=== PATIENT | male | born 1965 | race Caucasian/White ===

== ENCOUNTER 2019-01-29 11:41 | Inpatient (IN) | payer MEDICAID ==
[~2019-01-29] VITALS: Ht 162.6 cm; Wt 81.6 kg
[~2019-01-29 11:41] MED LIST: BENZ1TAB7 PO; LORA-250 PO; LURA120T PO; PROP80CA2 PO; TRAZ150T78 PO
[2019-01-29 16:18] LABS: EOSINOPHILS % 2.6 % (0.0-5.0); LYMPHOCYTES % 8.7 % (20.0-50.0); MEAN CORPUSCULAR HEMOGLOBIN 26.9 pg (28.0-32.0); MEAN CORPUSCULAR VOLUME 82.8 fL (80.0-94.0); MEAN PLATELET VOLUME 8.8 fl (7.4-10.4); MONOCYTES % 8.3 % (2.0-8.0); NEUTROPHILS % 79.4 % (40.0-76.0); PLATELET 500 x1000/uL (130-400); RED BLOOD CELL COUNT 2.32 mill/uL (4.7-6.1); RED CELL DISTRIBUTION WIDTH 16.7 % (11.6-14.6)
[2019-01-29 16:22] LABS: CHLORIDE 105 mEq/L (98-107); HEMATOCRIT. 19.2 % (42.0-52.0); HEMOGLOBIN. 6.3 g/dL (14.0-18.0)
[2019-01-29] MEDS ORDERED: CLONIDINE 0.2MG TABLET PO ONE (17:00)
[2019-01-29] MEDS ORDERED: DOCUSATE SODIUM 100MG CAPSULE PO PRN (21:00)
[2019-01-29] MEDS ORDERED: IPRATROPIUM/ALBUTEROL 0.5-3(2.5)MG/3ML NEB NEB PRN (21:00)
[2019-01-29] MEDS ORDERED: ONDANSETRON HCL 4MG/2ML INJ IV PRN (21:00)
[2019-01-29] MEDS ORDERED: MAGNESIUM/ALUMINUM HYDROXIDE/SIMETHICONE 30ML UDC PO PRN (21:00)
[2019-01-29 21:42] LABS: CLARITY URINE CLEAR (CLEAR); COLOR URINE YELLOW (YELLOW); KETONES URINE NEGATIVE (NEGATIVE); LEUKOCYTE ESTERASE URINE NEGATIVE (NEGATIVE); NITRITE URINE NEGATIVE (NEGATIVE); OCCULT BLOOD URINE 1+ (NEGATIVE); PROTEIN URINE 4+ (NEGATIVE); SPECIFIC GRAVITY URINE 1.015 (1.005-1.030); UROBILINOGEN URINE 0.2 E.U./dL (0.2-1.0)
[2019-01-29 22:00] LABS: HEPATITIS B SURFACE ANTIGEN NEGATIVE
[2019-01-29 22:04] LABS: CREATINE KINASE 457 IU/L (39-308)
[2019-01-29 22:05] LABS: CREATINE KINASE MB FRACTION 2.6 ng/mL (0.5-3.6)
[2019-01-29 22:08] LABS: *AMPHETAMINES SCREEN URINE NEGATIVE (NEGATIVE); *BARBITURATES SCREEN URINE NEGATIVE (NEGATIVE); *BENZODIAZEPINES SCREEN URINE NEGATIVE (NEGATIVE)
[2019-01-29 22:09] LABS: *COCAINE SCREEN URINE NEGATIVE (NEGATIVE); CANNABINOID URINE SCREEN NEGATIVE (NEGATIVE); METHADONE URINE SCREEN NEGATIVE (NEGATIVE); OPIATES URINE SCREEN NEGATIVE (NEGATIVE); PHENCYCLIDINE URINE SCREEN NEGATIVE (NEGATIVE)
[2019-01-29 22:20] VITALS: BP 134/65
[2019-01-29 22:29] LABS: HEPATITIS A AB IGM NEGATIVE (NEGATIVE)
[2019-01-30] VITALS (10 sets, daily range): BP systolic 129–166; BP diastolic 65–82
[2019-01-30] MEDS ORDERED: DEXTROSE 50% WATER 50ML SYRINGE IV PRN (00:45)
[2019-01-30] MEDS: INSULIN LISPRO 100 UNITS/ML SUBCUT SCH ×5 (01:14→21:00)
[2019-01-30 06:46] LABS: BASOPHILS % 0.4 % (0.0-2.0); EOSINOPHILS % 5.1 % (0.0-5.0); LYMPHOCYTES % 11.5 % (20.0-50.0); MEAN CORPUSCULAR HEMOGLOBIN 27.2 pg (28.0-32.0); MEAN CORPUSCULAR VOLUME 82.4 fL (80.0-94.0); MEAN PLATELET VOLUME 8.1 fl (7.4-10.4); MONOCYTES % 9.3 % (2.0-8.0); NEUTROPHILS % 73.7 % (40.0-76.0); PLATELET 416 x1000/uL (130-400); RED BLOOD CELL COUNT 2.16 mill/uL (4.7-6.1); RED CELL DISTRIBUTION WIDTH 16.1 % (11.6-14.6)
[2019-01-30 06:59] LABS: LDL CHOLESTEROL 144 mg/dL (5-100)
[2019-01-30 07:00] LABS: CREATINE KINASE 343 IU/L (39-308)
[2019-01-30 07:01] LABS: HDL CHOLESTEROL 39 mg/dL (40-59)
[2019-01-30 07:07] LABS: CREATINE KINASE MB FRACTION 1.9 ng/mL (0.5-3.6)
[2019-01-30] MEDS: FERROUS SULFATE 325MG TABLET PO SCH ×3 (07:50→18:49)
[2019-01-30 08:38] LABS: HEMATOCRIT. 17.8 % (42.0-52.0); HEMOGLOBIN. 5.9 g/dL (14.0-18.0)
[2019-01-30] MEDS: BLOOD SUGAR DIAGNOSTIC STRIP TEST SCH ×3 (12:05→21:00)
[2019-01-30 16:46] LABS: HEMATOCRIT 20.7 % (42.0-52.0)
[2019-01-30] MEDS ORDERED: EPOETIN ALFA 10000UNITS/ML VIAL SUBCUT NR (21:00)
[2019-01-31] VITALS (7 sets, daily range): BP systolic 153–197; BP diastolic 75–101
[2019-01-31 01:28] LABS: HEMATOCRIT 23.4 % (42.0-52.0); HEMOGLOBIN 7.8 g/dL (14.0-18.0)
[2019-01-31] MEDS: ACETAMINOPHEN 325MG TABLET PO PRN (04:22)
[2019-01-31] MEDS: CLONIDINE 0.1MG TABLET PO PRN ×2 (04:23→11:25)
[2019-01-31] MEDS: GUAIFENESIN-DM 200MG-20MG/10ML UDC PO PRN ×3 (04:28→20:30)
[2019-01-31] MEDS: BLOOD SUGAR DIAGNOSTIC STRIP TEST SCH ×4 (06:29→20:16)
[2019-01-31 07:00] LABS: HEMATOCRIT. 23.6 % (42.0-52.0); MEAN CORPUSCULAR HEMOGLOBIN 28.3 pg (28.0-32.0); MEAN PLATELET VOLUME 8.5 fl (7.4-10.4); PLATELET 477 x1000/uL (130-400); RED BLOOD CELL COUNT 2.81 mill/uL (4.7-6.1); RED CELL DISTRIBUTION WIDTH 16.2 % (11.6-14.6)
[2019-01-31 07:29] LABS: PHOSPHORUS 3.5 mg/dL (2.5-4.9)
[2019-01-31 09:06] LABS: HIV SCREEN 4G Non Reactive (Non Reactive)
[2019-01-31] MEDS: FERROUS SULFATE 325MG TABLET PO SCH ×3 (09:15→17:35)
[2019-01-31] MEDS: INSULIN LISPRO 100 UNITS/ML SUBCUT SCH ×4 (09:17→20:27)
[2019-01-31] MEDS: AMLODIPINE 10MG TABLET PO SCH (11:28)
[2019-01-31] MEDS ORDERED: BENZONATATE 100MG CAPSULE PO PRN (15:00)
[2019-01-31 15:11] LABS: NUCLEATED RED BLOOD CELLS 1 /100 WBC
[2019-01-31 15:12] LABS: PLATELET ESTIMATE INCREASED
[2019-01-31] MEDS: METOPROLOL TARTRATE 25MG TABLET PO SCH (20:15)
[2019-01-31] MEDS: OMEPRAZOLE 20MG CAPSULE EXTENDED RELEASE PO SCH (20:15)
[2019-01-31 22:12] LABS: HEMOGLOBIN 8.3 g/dL (14.0-18.0)
[2019-01-31 22:55] LABS: VITAMIN B12 SERUM 1090 pg/mL (211-911)
[2019-02-01] VITALS: BP 148/77
[2019-02-01] MEDS: BLOOD SUGAR DIAGNOSTIC STRIP TEST SCH ×4 (06:40→21:45)
[2019-02-01] MEDS: OMEPRAZOLE 20MG CAPSULE EXTENDED RELEASE PO SCH ×2 (06:41→21:35)
[2019-02-01] MEDS: INSULIN LISPRO 100 UNITS/ML SUBCUT SCH ×4 (07:50→21:55)
[2019-02-01 08:00] VITALS: BP 145/72
[2019-02-01 08:09] LABS: BASOPHILS % 0.3 % (0.0-2.0); EOSINOPHILS % 5.4 % (0.0-5.0); HEMOGLOBIN. 8.1 g/dL (14.0-18.0); LYMPHOCYTES % 7.6 % (20.0-50.0); MEAN CORPUSCULAR VOLUME 83.1 fL (80.0-94.0); MEAN PLATELET VOLUME 8.1 fl (7.4-10.4); MONOCYTES % 6.4 % (2.0-8.0); NEUTROPHILS % 80.3 % (40.0-76.0); PLATELET 480 x1000/uL (130-400); RED BLOOD CELL COUNT 2.89 mill/uL (4.7-6.1); RED CELL DISTRIBUTION WIDTH 16.5 % (11.6-14.6)
[2019-02-01 08:37] LABS: PHOSPHORUS 3.9 mg/dL (2.5-4.9)
[2019-02-01] MEDS: AMLODIPINE 10MG TABLET PO SCH (09:02)
[2019-02-01] MEDS: METOPROLOL TARTRATE 25MG TABLET PO SCH ×2 (09:02→21:35)
[2019-02-01] MEDS: FERROUS SULFATE 325MG TABLET PO SCH ×3 (09:09→17:01)
[2019-02-01 11:17] LABS: TOTAL IRON BINDING CAPACITY 204 ug/dL (250-450)
[2019-02-01 12:00] VITALS: BP 149/79
[2019-02-01] MEDS: CEFTRIAXONE 1 G PREMIX 50 ML IV SCH (13:47)
[2019-02-01] MEDS: AZITHROMYCIN 500 MG in DEXT 5% WATER 250 ML IV SCH (14:27)
[2019-02-01 16:00] VITALS: BP 150/76
[2019-02-01 17:50] LABS: HEMATOCRIT 25.7 % (42.0-52.0); HEMOGLOBIN 8.5 g/dL (14.0-18.0)
[2019-02-01] MEDS: ACETAMINOPHEN 325MG TABLET PO PRN (18:21)
[2019-02-01 20:00] VITALS: BP 135/71
[2019-02-01] MEDS: GUAIFENESIN-DM 200MG-20MG/10ML UDC PO PRN (21:49)
[2019-02-02] VITALS: BP_SYST 119; BP_SYST 148; BP_DIAS 59; BP_DIAS 79
[2019-02-02 04:00] VITALS: BP 148/79
[2019-02-02] MEDS: OMEPRAZOLE 20MG CAPSULE EXTENDED RELEASE PO SCH (06:24)
[2019-02-02 06:26] LABS: HEMATOCRIT. 24.2 % (42.0-52.0); HEMOGLOBIN. 7.9 g/dL (14.0-18.0); MEAN CORPUSCULAR HEMOGLOBIN 27.4 pg (28.0-32.0); MEAN CORPUSCULAR VOLUME 83.6 fL (80.0-94.0); MEAN PLATELET VOLUME 8.3 fl (7.4-10.4); PLATELET 490 x1000/uL (130-400); RED CELL DISTRIBUTION WIDTH 16.6 % (11.6-14.6)
[2019-02-02] MEDS: BLOOD SUGAR DIAGNOSTIC STRIP TEST SCH ×4 (06:43→21:48)
[2019-02-02 06:45] LABS: PHOSPHORUS 4.5 mg/dL (2.5-4.9)
[2019-02-02] MEDS: INSULIN LISPRO 100 UNITS/ML SUBCUT SCH ×4 (07:50→21:54)
[2019-02-02] MEDS: FERROUS SULFATE 325MG TABLET PO SCH ×3 (07:50→18:16)
[2019-02-02 08:00] VITALS: BP 162/76
[2019-02-02 09:12] LABS: IMMUNOGLOBULIN A 111 mg/dL (90-386); IMMUNOGLOBULIN G 584 mg/dL (700-1600); IMMUNOGLOBULIN M 27 mg/dL (20-172)
[2019-02-02 09:12] LABS: FOLATE HEMATOCRIT 25.7 % (37.5-51.0)
[2019-02-02] MEDS: METOPROLOL TARTRATE 25MG TABLET PO SCH ×2 (09:51→21:50)
[2019-02-02] MEDS: AMLODIPINE 10MG TABLET PO SCH (09:51)
[2019-02-02] MEDS: CEFTRIAXONE 1 G PREMIX 50 ML IV SCH (12:30)
[2019-02-02] MEDS: AZITHROMYCIN 500 MG in DEXT 5% WATER 250 ML IV SCH (13:00)
[2019-02-02] MEDS ORDERED: SIMETHICONE 40 MG/0.6 ML 30ML ONE (13:02)
[2019-02-02] MEDS ORDERED: MIDAZOLAM HCL 5 MG/5 ML VIAL ONE (13:03)
[2019-02-02] MEDS ORDERED: FENTANYL CITRATE/PF 50MCG/ML 2ML VIAL ONE (13:03)
[2019-02-02] MEDS ORDERED: FENTANYL CITRATE/PF 50MCG/ML 2ML VIAL IV PRN (13:40)
[2019-02-02] MEDS ORDERED: MIDAZOLAM HCL 5 MG/5 ML VIAL IV PRN (13:41)
[2019-02-02] MEDS ORDERED: DIPHENHYDRAMINE 50MG/ML VIAL IV PRN (13:47)
[2019-02-02] MEDS ORDERED: DIPHENHYDRAMINE 50MG/ML VIAL ONE ×2 (13:47→13:56)
[2019-02-02 16:46] LABS: PLATELET ESTIMATE INCREASED
[2019-02-02 17:14] LABS: ANA IFA Negative (.)
[2019-02-02 20:00] VITALS: BP 126/94
[2019-02-02] MEDS: SUCRALFATE 1G TABLET PO SCH (22:25)
[2019-02-03] VITALS: BP 132/68
[2019-02-03 04:00] VITALS: BP 147/77
[2019-02-03] MEDS: SUCRALFATE 1G TABLET PO SCH ×5 (05:30→21:10)
[2019-02-03 06:41] LABS: HEMATOCRIT. 23.7 % (42.0-52.0); HEMOGLOBIN. 7.8 g/dL (14.0-18.0); MEAN CORPUSCULAR HEMOGLOBIN 27.6 pg (28.0-32.0); MEAN CORPUSCULAR VOLUME 83.4 fL (80.0-94.0); MEAN PLATELET VOLUME 8.3 fl (7.4-10.4); PLATELET 462 x1000/uL (130-400); RED BLOOD CELL COUNT 2.84 mill/uL (4.7-6.1); RED CELL DISTRIBUTION WIDTH 16.7 % (11.6-14.6)
[2019-02-03 07:15] LABS: PHOSPHORUS 5.1 mg/dL (2.5-4.9)
[2019-02-03] MEDS: BLOOD SUGAR DIAGNOSTIC STRIP TEST SCH ×4 (07:20→21:11)
[2019-02-03] MEDS: INSULIN LISPRO 100 UNITS/ML SUBCUT SCH ×4 (07:50→22:39)
[2019-02-03 08:00] VITALS: BP 159/81
[2019-02-03] MEDS: METOPROLOL TARTRATE 25MG TABLET PO SCH ×2 (08:31→21:10)
[2019-02-03] MEDS: FERROUS SULFATE 325MG TABLET PO SCH ×3 (08:31→18:39)
[2019-02-03] MEDS: AMLODIPINE 10MG TABLET PO SCH (08:32)
[2019-02-03 10:06] LABS: COMPLEMENT C3 133 mg/dL (82-167)
[2019-02-03] MEDS: CEFTRIAXONE 1 G PREMIX 50 ML IV SCH (12:03)
[2019-02-03] MEDS: AZITHROMYCIN 500 MG in DEXT 5% WATER 250 ML IV SCH (13:18)
[2019-02-03 16:23] LABS: PLATELET ESTIMATE INCREASED
[2019-02-03 17:13] LABS: FOLATE HEMOLYSATE 535.4 ng/mL (Not Estab.); FOLATE RBC 2083 ng/mL (>498)
[2019-02-03] MEDS ORDERED: FERR325T23 PO (18:24)
[2019-02-03] MEDS ORDERED: AMLO10TA80 PO (18:24)
[2019-02-03] MEDS ORDERED: AZIT500T5 PO (18:24)
[2019-02-03] MEDS ORDERED: METO25TA6 PO (18:24)
[2019-02-03] MEDS ORDERED: PANT40TA4 MT (18:24)
[2019-02-03] MEDS ORDERED: ATOR20TA65 MT (18:24)
[2019-02-03] MEDS ORDERED: SUCR1TAB30 PO (18:24)
[2019-02-03 20:00] VITALS: BP 147/76
[2019-02-03] MEDS ORDERED: PANTOPRAZOLE SODIUM 40 MG/VIAL IV SCH (21:35)
[2019-02-04] MEDS ORDERED: AZITHROMYCIN 500 MG TABLET PO SCH (09:00)
== END 2019-02-03 22:25 | disposition home or self-care (01) | DRG 241 ==
LOC: ER 11:41 → EDBEDREQTM 19:32 → EDBEDREQ 19:32 → ENRESERV 20:50 → 6EST 23:14
PROVIDERS: ADMIT Internal Medicine; ATTEND Internal Medicine
PROC: 30233N1 Transfusion of Nonautologous Red Blood Cells into Peripheral Vein, Percutaneous Approach (ICD-10-PCS; principal; 2019-01-29)
PROC: 0DB68ZX Excision of Stomach, Via Natural or Artificial Opening Endoscopic, Diagnostic (ICD-10-PCS; 2019-02-02)
DX: K29.71 Gastritis, unspecified, with bleeding (principal); E43 Unspecified severe protein-calorie malnutrition; J18.9 Pneumonia, unspecified organism; E11.22 Type 2 diabetes mellitus with diabetic chronic kidney disease; D72.1 Eosinophilia; N18.4 Chronic kidney disease, stage 4 (severe); N17.9 Acute kidney failure, unspecified; E11.319 Type 2 diabetes mellitus with unspecified diabetic retinopathy without macular edema; D50.9 Iron deficiency anemia, unspecified; K21.0 Gastro-esophageal reflux disease with esophagitis; I12.9 Hypertensive chronic kidney disease with stage 1 through stage 4 chronic kidney disease, or unspecified chronic kidney disease; D63.8 Anemia in other chronic diseases classified elsewhere; E78.5 Hyperlipidemia, unspecified; M60.9 Myositis, unspecified; Z87.11 Personal history of peptic ulcer disease; Z68.30 Body mass index [BMI] 30.0-30.9, adult; Z82.49 Family history of ischemic heart disease and other diseases of the circulatory system; Z83.3 Family history of diabetes mellitus; Z88.8 Allergy status to other drugs, medicaments and biological substances; Z79.899 Other long term (current) drug therapy
CPT/HCPCS: 36415; 71045; 80048; 80061; 80305; 81003; 82270; 82550; 82553; 82570; 82607; 82728; 82747; 82784; 82962; 83010; 83036; 83540; 83550; 83615; 83735; 83880; 84100; 84145; 84156; 84443; 84484; 85014; 85018; 85044; 85049; 85384; 85651; 86140; 86160; 86256; 86334; 86705; 86709; 86803; 86850; 86870; 86880; 86900; 86920; 87340; 87389; 88305; 88313; 93306; 93970; 94640; 99152; 99291; C9113; J0456; J0696; J0885; J1200; J1815; J2250; J3010; J7040; J7060; J7620; P9016; G0500

== ENCOUNTER 2019-05-19 20:19 | Inpatient (IN) | payer MEDICAID ==
[~2019-05-19] VITALS: Ht 162.6 cm; Wt 93.0 kg
[~2019-05-19 20:19] MED LIST changes: +AMLO10TA80 PO; +ATOR20TA65 MT; +AZIT500T8 PO; +FERR325T23 PO; +METO25TA6 PO; +PANT40TA4 MT; -PROP80CA2 PO; +SUCR1TAB30 PO
[2019-05-19] MEDS ORDERED: SODIUM CHLORIDE 0.9% 1,000 ML IV ONE (22:53)
[2019-05-19 23:35] LABS: CHLORIDE 109 mEq/L (98-107); INR 0.9; PROTHROMBIN TIME 9.5 sec (9.6-11.0)
[2019-05-19 23:38] LABS: MEAN CORPUSCULAR HEMOGLOBIN 27.4 pg (28.0-32.0); MEAN CORPUSCULAR VOLUME 81.9 fL (80.0-94.0); RED BLOOD CELL COUNT 1.93 mill/uL (4.7-6.1)
[2019-05-19 23:39] LABS: BASOPHILS % 0.4 % (0.0-2.0); EOSINOPHILS % 11.3 % (0.0-5.0); LYMPHOCYTES % 13.4 % (20.0-50.0); MEAN PLATELET VOLUME 8.6 fl (7.4-10.4); MONOCYTES % 6.5 % (2.0-8.0); NEUTROPHILS % 68.4 % (40.0-76.0); PLATELET 319 x1000/uL (130-400); RED CELL DISTRIBUTION WIDTH 20.4 % (11.6-14.6)
[2019-05-19 23:41] LABS: HEMATOCRIT. 15.8 % (42.0-52.0); HEMOGLOBIN. 5.3 g/dL (14.0-18.0)
[2019-05-20] MEDS: SODIUM CHLORIDE 0.9% 1,000 ML IV SCH ×3 (01:45→21:55)
[2019-05-20] MEDS ORDERED: DEXTROSE 50% WATER 50ML SYRINGE IV PRN (01:45)
[2019-05-20] MEDS ORDERED: MAGNESIUM/ALUMINUM HYDROXIDE/SIMETHICONE 30ML UDC PO PRN (01:45)
[2019-05-20] MEDS ORDERED: ONDANSETRON HCL 4MG/2ML INJ IV PRN (01:45)
[2019-05-20] MEDS ORDERED: PANTOPRAZOLE SODIUM 40 MG/VIAL IV SCH (10:00)
[2019-05-20] MEDS: BLOOD SUGAR DIAGNOSTIC STRIP TEST SCH ×3 (10:21→21:47)
[2019-05-20] MEDS: CLONIDINE 0.1MG TABLET PO PRN (10:24)
[2019-05-20] MEDS: INSULIN LISPRO 100 UNITS/ML SUBCUT SCH ×3 (10:25→21:46)
[2019-05-20 13:19] LABS: BG BASE EXCESS -8.9 mmol/L (-2.0-2.0); BG CARBOXYHEMOGLOBIN 0.3 % (0.5-1.5); BG DEOXYHEMOGLOBIN 2.8 % (0.0-5.0); BG FRACTION INSPIRED OXYGEN 21; BG HCO3 ACT 16.2 mmol/L (22.0-26.0); BG METHEMOGLOBIN 0.3 % (0.0-1.5); BG OXYGEN SATURATION 97.2 % (92.0-98.5); BG OXYHEMOGLOBIN 96.6 % (94.0-97.0); BG PCO2 31.6 mmHg (35.0-45.0); BG PH 7.329 (7.350-7.450); BG PO2 114.1 mmHg (75.0-100.0); BG SAMPLE SITE LEFT BRACHIAL; BG TOTAL HEMOGLOBIN 6.5 g/dL (12.0-18.0); BG VENT MODE ROOM AIR
[2019-05-20 14:00] VITALS: BP 155/71
[2019-05-20] MEDS ORDERED: ALBUMIN HUMAN 25GM/100ML (25%) IV NR (15:00)
[2019-05-20 16:00] VITALS: BP 152/79
[2019-05-20] MEDS ORDERED: INFLUENZA VIRUS VACCINE(AFLURIA) 0.5ML SYR IM ONE (16:30)
[2019-05-20] MEDS: FERROUS SULFATE 325MG TABLET PO SCH (18:04)
[2019-05-20 20:35] VITALS: BP 139/67
[2019-05-20 20:49] LABS: HEMATOCRIT 17.3 % (42.0-52.0); HEMOGLOBIN 5.7 g/dL (14.0-18.0)
[2019-05-20 21:09] LABS: FOLIC ACID (FOLATE) SERUM 9.6 ng/mL (>5.38)
[2019-05-20] MEDS: PANTOPRAZOLE SODIUM 40 MG/VIAL IV SCH (21:46)
[2019-05-21] VITALS (21 sets, daily range): BP systolic 126–180; BP diastolic 63–90
[2019-05-21] MEDS: BLOOD SUGAR DIAGNOSTIC STRIP TEST SCH ×4 (06:25→21:10)
[2019-05-21] MEDS: FERROUS SULFATE 325MG TABLET PO SCH ×3 (07:44→16:57)
[2019-05-21] MEDS: INSULIN LISPRO 100 UNITS/ML SUBCUT SCH ×4 (07:44→21:00)
[2019-05-21] MEDS: SODIUM CHLORIDE 0.9% 1,000 ML IV SCH ×2 (07:45→16:57)
[2019-05-21] MEDS: CITRIC ACID/SODIUM CITRATE SOLN 30ML UDC PO SCH ×3 (09:00→16:57)
[2019-05-21] MEDS: PANTOPRAZOLE SODIUM 40 MG/VIAL IV SCH (09:17)
[2019-05-21 09:56] LABS: HEMATOCRIT. 21.1 % (42.0-52.0); HEMOGLOBIN. 7.3 g/dL (14.0-18.0); MEAN CORPUSCULAR HEMOGLOBIN 28.7 pg (28.0-32.0); MEAN CORPUSCULAR VOLUME 82.7 fL (80.0-94.0); MEAN PLATELET VOLUME 8.6 fl (7.4-10.4); PLATELET 265 x1000/uL (130-400); RED BLOOD CELL COUNT 2.56 mill/uL (4.7-6.1)
[2019-05-21 09:57] LABS: CLARITY URINE CLEAR (CLEAR); COLOR URINE YELLOW (YELLOW); KETONES URINE NEGATIVE (NEGATIVE); LEUKOCYTE ESTERASE URINE NEGATIVE (NEGATIVE); NITRITE URINE NEGATIVE (NEGATIVE); OCCULT BLOOD URINE 1+ (NEGATIVE); PROTEIN URINE 4+ (NEGATIVE); SPECIFIC GRAVITY URINE 1.015 (1.005-1.030); UROBILINOGEN URINE 0.2 E.U./dL (0.2-1.0)
[2019-05-21 10:17] LABS: INR 0.9; PARTIAL THROMBOPLASTIN TIME 26.4 sec (23.4-31.0); PROTHROMBIN TIME 9.7 sec (9.6-11.0)
[2019-05-21 10:46] LABS: PHOSPHORUS 6.9 mg/dL (2.5-4.9)
[2019-05-21 13:21] LABS: PLATELET ESTIMATE NORMAL
[2019-05-21] MEDS ORDERED: MIDAZOLAM HCL 5 MG/5 ML VIAL ONE (13:42)
[2019-05-21] MEDS ORDERED: MIDAZOLAM HCL 5 MG/5 ML VIAL IV PRN (13:42)
[2019-05-21] MEDS ORDERED: FENTANYL CITRATE/PF 50MCG/ML 2ML VIAL IV PRN (13:42)
[2019-05-21] MEDS ORDERED: FENTANYL CITRATE/PF 50MCG/ML 2ML VIAL ONE (13:43)
[2019-05-21 15:42] LABS: HEMOGLOBIN 6.9 g/dL (14.0-18.0)
[2019-05-21 15:43] LABS: HEMATOCRIT 19.7 % (42.0-52.0)
[2019-05-21] MEDS: CLONIDINE 0.1MG TABLET PO PRN (16:57)
[2019-05-21] MEDS: SUCRALFATE 1 G/10 ML UDC PO SCH ×2 (16:57→21:10)
[2019-05-21] MEDS ORDERED: TAMS-11 PO (23:10)
[2019-05-21 23:41] LABS: HEMATOCRIT 23.5 % (42.0-52.0)
[2019-05-22] VITALS: BP 140/70
[2019-05-22 04:00] VITALS: BP 152/81
[2019-05-22] MEDS: SODIUM CHLORIDE 0.9% 1,000 ML IV SCH ×3 (04:03→17:55)
[2019-05-22] MEDS: BLOOD SUGAR DIAGNOSTIC STRIP TEST SCH ×4 (06:17→21:00)
[2019-05-22] MEDS: OMEPRAZOLE 20MG CAPSULE EXTENDED RELEASE PO SCH (06:17)
[2019-05-22] MEDS: SUCRALFATE 1 G/10 ML UDC PO SCH ×4 (06:19→21:55)
[2019-05-22] MEDS: ACETAMINOPHEN 325MG TABLET PO PRN (06:33)
[2019-05-22 06:56] LABS: HEMATOCRIT. 24.5 % (42.0-52.0); HEMOGLOBIN. 8.3 g/dL (14.0-18.0); MEAN CORPUSCULAR HEMOGLOBIN 28.3 pg (28.0-32.0); MEAN CORPUSCULAR VOLUME 83.7 fL (80.0-94.0); RED BLOOD CELL COUNT 2.92 mill/uL (4.7-6.1); RED CELL DISTRIBUTION WIDTH 17.2 % (11.6-14.6)
[2019-05-22 07:36] LABS: PHOSPHORUS 6.2 mg/dL (2.5-4.9)
[2019-05-22 08:08] VITALS: BP 157/76
[2019-05-22] MEDS: FERROUS SULFATE 325MG TABLET PO SCH ×3 (08:29→17:54)
[2019-05-22] MEDS: INSULIN LISPRO 100 UNITS/ML SUBCUT SCH ×4 (08:30→21:56)
[2019-05-22] MEDS: CITRIC ACID/SODIUM CITRATE SOLN 30ML UDC PO SCH ×3 (09:26→17:54)
[2019-05-22 10:28] LABS: PLATELET 241 x1000/uL (130-400)
[2019-05-22 10:34] LABS: PLATELET ESTIMATE NORMAL
[2019-05-22 12:01] VITALS: BP 163/75
[2019-05-22 16:12] VITALS: BP 165/83
[2019-05-22 20:00] VITALS: BP 176/88
[2019-05-22] MEDS: CLONIDINE 0.1MG TABLET PO PRN (23:12)
[2019-05-23] VITALS: BP 174/87
[2019-05-23] MEDS: HYDRALAZINE 20MG/ML VIAL IV PRN ×3 (01:07→18:06)
[2019-05-23 04:00] VITALS: BP 154/82
[2019-05-23] MEDS: BLOOD SUGAR DIAGNOSTIC STRIP TEST SCH ×4 (06:14→21:32)
[2019-05-23] MEDS: SUCRALFATE 1 G/10 ML UDC PO SCH ×4 (06:14→21:25)
[2019-05-23] MEDS: OMEPRAZOLE 20MG CAPSULE EXTENDED RELEASE PO SCH (06:14)
[2019-05-23 06:46] LABS: BASOPHILS % 0.6 % (0.0-2.0); EOSINOPHILS % 12.3 % (0.0-5.0); HEMATOCRIT. 25.3 % (42.0-52.0); HEMOGLOBIN. 8.9 g/dL (14.0-18.0); MEAN CORPUSCULAR HEMOGLOBIN 28.9 pg (28.0-32.0); MEAN CORPUSCULAR VOLUME 82.6 fL (80.0-94.0); MEAN PLATELET VOLUME 8.6 fl (7.4-10.4); MONOCYTES % 8.9 % (2.0-8.0); NEUTROPHILS % 69.2 % (40.0-76.0); PLATELET 310 x1000/uL (130-400); RED BLOOD CELL COUNT 3.07 mill/uL (4.7-6.1); RED CELL DISTRIBUTION WIDTH 17.4 % (11.6-14.6)
[2019-05-23] MEDS: INSULIN LISPRO 100 UNITS/ML SUBCUT SCH ×5 (07:50→21:43)
[2019-05-23 08:00] VITALS: BP 181/84
[2019-05-23 08:07] LABS: PHOSPHORUS 5.3 mg/dL (2.5-4.9)
[2019-05-23] MEDS: CITRIC ACID/SODIUM CITRATE SOLN 30ML UDC PO SCH ×3 (08:51→17:56)
[2019-05-23] MEDS: FERROUS SULFATE 325MG TABLET PO SCH ×3 (08:51→17:56)
[2019-05-23] MEDS ORDERED: POTASSIUM CHLORIDE 20MEQ TABLET SR PO NR (09:30)
[2019-05-23] MEDS: SODIUM CHLORIDE 0.9% 1,000 ML IV SCH (10:30)
[2019-05-23] MEDS: ACETAMINOPHEN 325MG TABLET PO PRN ×2 (10:36→23:10)
[2019-05-23 12:00] VITALS: BP_SYST 156; BP_SYST 181; BP_DIAS 78; BP_DIAS 84
[2019-05-23 16:00] VITALS: BP_SYST 180; BP_SYST 181; BP_DIAS 84
[2019-05-23] MEDS ORDERED: METOLAZONE 10MG TABLET PO SCH (19:15)
[2019-05-23 20:00] VITALS: BP 146/73
[2019-05-23] MEDS: NIFEDIPINE XL 30MG TAB PO SCH (20:10)
[2019-05-23] MEDS: HYDRALAZINE HCL 50MG TABLET PO SCH (21:23)
[2019-05-24] VITALS: BP 160/76
[2019-05-24 04:00] VITALS: BP 124/64
[2019-05-24] MEDS: HYDRALAZINE HCL 50MG TABLET PO SCH ×3 (06:09→21:29)
[2019-05-24] MEDS: BLOOD SUGAR DIAGNOSTIC STRIP TEST SCH ×4 (06:34→20:46)
[2019-05-24] MEDS: OMEPRAZOLE 20MG CAPSULE EXTENDED RELEASE PO SCH (06:34)
[2019-05-24] MEDS: SUCRALFATE 1 G/10 ML UDC PO SCH ×4 (06:36→21:32)
[2019-05-24 07:11] LABS: PHOSPHORUS 4.9 mg/dL (2.5-4.9)
[2019-05-24] MEDS: INSULIN LISPRO 100 UNITS/ML SUBCUT SCH ×4 (07:39→21:30)
[2019-05-24 08:00] VITALS: BP 169/83
[2019-05-24] MEDS: CLONIDINE 0.1MG TABLET PO PRN (08:16)
[2019-05-24] MEDS: CITRIC ACID/SODIUM CITRATE SOLN 30ML UDC PO SCH ×3 (08:16→17:28)
[2019-05-24] MEDS: NIFEDIPINE XL 30MG TAB PO SCH ×2 (08:16→17:28)
[2019-05-24] MEDS: FERROUS SULFATE 325MG TABLET PO SCH ×3 (08:16→17:28)
[2019-05-24 11:53] LABS: BASOPHILS % 0.5 % (0.0-2.0); EOSINOPHILS % 8.7 % (0.0-5.0); HEMATOCRIT. 24.4 % (42.0-52.0); HEMOGLOBIN. 8.5 g/dL (14.0-18.0); LYMPHOCYTES % 9.6 % (20.0-50.0); MEAN CORPUSCULAR HEMOGLOBIN 28.9 pg (28.0-32.0); MEAN CORPUSCULAR VOLUME 83.3 fL (80.0-94.0); MEAN PLATELET VOLUME 8.4 fl (7.4-10.4); MONOCYTES % 8.2 % (2.0-8.0); PLATELET 298 x1000/uL (130-400); RED BLOOD CELL COUNT 2.93 mill/uL (4.7-6.1); RED CELL DISTRIBUTION WIDTH 17.3 % (11.6-14.6)
[2019-05-24 12:00] VITALS: BP 153/84
[2019-05-24] MEDS: FUROSEMIDE 100MG/10ML VIAL IVP SCH (13:28)
[2019-05-24 16:00] VITALS: BP 135/75
[2019-05-24 20:00] VITALS: BP 135/68
[2019-05-25] VITALS (17 sets, daily range): BP systolic 132–175; BP diastolic 66–87
[2019-05-25] MEDS: OMEPRAZOLE 20MG CAPSULE EXTENDED RELEASE PO SCH (06:58)
[2019-05-25] MEDS: HYDRALAZINE HCL 50MG TABLET PO SCH ×3 (06:59→21:12)
[2019-05-25] MEDS: SUCRALFATE 1 G/10 ML UDC PO SCH ×4 (07:00→20:40)
[2019-05-25] MEDS: BLOOD SUGAR DIAGNOSTIC STRIP TEST SCH ×4 (07:11→20:56)
[2019-05-25] MEDS: INSULIN LISPRO 100 UNITS/ML SUBCUT SCH ×4 (07:50→21:07)
[2019-05-25] MEDS: FERROUS SULFATE 325MG TABLET PO SCH ×3 (07:50→17:35)
[2019-05-25] MEDS: CITRIC ACID/SODIUM CITRATE SOLN 30ML UDC PO SCH ×3 (08:06→17:36)
[2019-05-25] MEDS: NIFEDIPINE XL 30MG TAB PO SCH ×2 (08:06→17:35)
[2019-05-25] MEDS ORDERED: HEPARIN 1000 UNITS/ML 10ML ONE (08:20)
[2019-05-25] MEDS ORDERED: LIDOCAINE HCL 1% 20ML VIAL (Pyxis) INJ ONE (08:20)
[2019-05-25] MEDS ORDERED: SODIUM BICARBONATE 4% (2.4MEQ) 5ML VIAL IV ONE (08:20)
[2019-05-25] MEDS ORDERED: CEFAZOLIN 1000MG PREMIX 50 ML IV ONE (08:44)
[2019-05-25] MEDS ORDERED: CEFAZOLIN 1000MG PREMIX 50 ML IV NR (08:44)
[2019-05-25] MEDS ORDERED: FENTANYL CITRATE/PF 50MCG/ML 2ML VIAL ONE (08:45)
[2019-05-25] MEDS: FUROSEMIDE 100MG/10ML VIAL IVP SCH (08:48)
[2019-05-25] MEDS ORDERED: FENTANYL CITRATE/PF 50MCG/ML 2ML VIAL IV ONE (09:15)
[2019-05-25 10:28] LABS: BASOPHILS % 0.7 % (0.0-2.0); EOSINOPHILS % 14.7 % (0.0-5.0); HEMATOCRIT. 27.7 % (42.0-52.0); HEMOGLOBIN. 9.4 g/dL (14.0-18.0); LYMPHOCYTES % 11.9 % (20.0-50.0); MEAN CORPUSCULAR HEMOGLOBIN 28.8 pg (28.0-32.0); MEAN CORPUSCULAR VOLUME 84.3 fL (80.0-94.0); MEAN PLATELET VOLUME 8.3 fl (7.4-10.4); MONOCYTES % 9.3 % (2.0-8.0); NEUTROPHILS % 63.4 % (40.0-76.0); PLATELET 366 x1000/uL (130-400); RED BLOOD CELL COUNT 3.28 mill/uL (4.7-6.1); RED CELL DISTRIBUTION WIDTH 17.7 % (11.6-14.6)
[2019-05-25 10:42] LABS: PHOSPHORUS 5.1 mg/dL (2.5-4.9)
[2019-05-25] MEDS ORDERED: POTASSIUM CHLORIDE 20MEQ TABLET SR PO NR (12:30)
[2019-05-25 13:16] LABS: HEPATITIS B SURFACE AB 4.3 mIU/mL
[2019-05-25 13:27] LABS: HEPATITIS B SURFACE ANTIGEN NEGATIVE
[2019-05-25] MEDS: ACETAMINOPHEN 325MG TABLET PO PRN (17:35)
[2019-05-25] MEDS: HYDROCODONE/APAP 7.5/325MG 1 TAB TABLET PO PRN (20:45)
[2019-05-26] VITALS: BP 155/72
[2019-05-26 04:00] VITALS: BP 138/82
[2019-05-26] MEDS: BLOOD SUGAR DIAGNOSTIC STRIP TEST SCH ×4 (06:25→21:00)
[2019-05-26] MEDS: HYDRALAZINE HCL 50MG TABLET PO SCH ×3 (06:29→22:59)
[2019-05-26] MEDS: SUCRALFATE 1 G/10 ML UDC PO SCH ×4 (06:29→22:59)
[2019-05-26] MEDS: OMEPRAZOLE 20MG CAPSULE EXTENDED RELEASE PO SCH (06:29)
[2019-05-26] MEDS: HYDROCODONE/APAP 7.5/325MG 1 TAB TABLET PO PRN ×3 (06:34→18:28)
[2019-05-26 07:09] LABS: HEMATOCRIT. 24.1 % (42.0-52.0); HEMOGLOBIN. 8.4 g/dL (14.0-18.0); MEAN CORPUSCULAR VOLUME 82.9 fL (80.0-94.0); MEAN PLATELET VOLUME 8.5 fl (7.4-10.4); PLATELET 303 x1000/uL (130-400); RED BLOOD CELL COUNT 2.91 mill/uL (4.7-6.1); RED CELL DISTRIBUTION WIDTH 17.7 % (11.6-14.6)
[2019-05-26] MEDS: INSULIN LISPRO 100 UNITS/ML SUBCUT SCH ×4 (07:50→23:03)
[2019-05-26 07:57] VITALS: BP 153/73
[2019-05-26] MEDS: FUROSEMIDE 100MG/10ML VIAL IVP SCH (09:45)
[2019-05-26] MEDS: NIFEDIPINE XL 30MG TAB PO SCH ×2 (09:46→18:20)
[2019-05-26] MEDS: FERROUS SULFATE 325MG TABLET PO SCH ×3 (09:46→18:34)
[2019-05-26] MEDS: CITRIC ACID/SODIUM CITRATE SOLN 30ML UDC PO SCH ×3 (09:59→18:20)
[2019-05-26] MEDS ORDERED: POTASSIUM CHLORIDE 20MEQ TABLET SR PO NR (10:00)
[2019-05-26 12:03] VITALS: BP 145/63
[2019-05-26 15:07] LABS: PLATELET ESTIMATE NORMAL
[2019-05-26 16:30] VITALS: BP 140/68
[2019-05-26 20:00] VITALS: BP 135/71
[2019-05-27] VITALS: BP 98/42
[2019-05-27] MEDS: HYDROCODONE/APAP 7.5/325MG 1 TAB TABLET PO PRN ×3 (01:10→21:17)
[2019-05-27 04:00] VITALS: BP 114/76
[2019-05-27] MEDS: HYDRALAZINE HCL 50MG TABLET PO SCH ×3 (06:00→21:03)
[2019-05-27] MEDS: BLOOD SUGAR DIAGNOSTIC STRIP TEST SCH ×4 (06:31→21:02)
[2019-05-27] MEDS: SUCRALFATE 1 G/10 ML UDC PO SCH ×4 (06:48→21:02)
[2019-05-27] MEDS: OMEPRAZOLE 20MG CAPSULE EXTENDED RELEASE PO SCH (06:49)
[2019-05-27] MEDS: INSULIN LISPRO 100 UNITS/ML SUBCUT SCH ×4 (06:56→21:08)
[2019-05-27 08:30] VITALS: BP 173/84
[2019-05-27] MEDS: NIFEDIPINE XL 30MG TAB PO SCH ×2 (08:42→18:38)
[2019-05-27] MEDS: FERROUS SULFATE 325MG TABLET PO SCH ×3 (08:49→18:38)
[2019-05-27] MEDS: CITRIC ACID/SODIUM CITRATE SOLN 30ML UDC PO SCH ×2 (08:49→13:03)
[2019-05-27] MEDS: FUROSEMIDE 100MG/10ML VIAL IVP SCH (08:50)
[2019-05-27 08:51] LABS: HEMATOCRIT. 24.2 % (42.0-52.0); HEMOGLOBIN. 8.4 g/dL (14.0-18.0); MEAN CORPUSCULAR VOLUME 83.7 fL (80.0-94.0); MEAN PLATELET VOLUME 8.4 fl (7.4-10.4); PLATELET 306 x1000/uL (130-400); RED BLOOD CELL COUNT 2.89 mill/uL (4.7-6.1); RED CELL DISTRIBUTION WIDTH 17.3 % (11.6-14.6)
[2019-05-27 09:07] LABS: PHOSPHORUS 4.5 mg/dL (2.5-4.9)
[2019-05-27 11:08] LABS: PLATELET ESTIMATE NORMAL
[2019-05-27 16:00] VITALS: BP 174/90
[2019-05-27] MEDS: ACETAMINOPHEN 325MG TABLET PO PRN (18:39)
[2019-05-27 20:00] VITALS: BP 167/82
[2019-05-28] VITALS (9 sets, daily range): BP systolic 133–164; BP diastolic 66–89
[2019-05-28 06:23] LABS: BASOPHILS % 0.7 % (0.0-2.0); EOSINOPHILS % 13.5 % (0.0-5.0); HEMOGLOBIN. 7.1 g/dL (14.0-18.0); MEAN CORPUSCULAR HEMOGLOBIN 28.8 pg (28.0-32.0); MEAN CORPUSCULAR VOLUME 83.3 fL (80.0-94.0); MEAN PLATELET VOLUME 8.5 fl (7.4-10.4); MONOCYTES % 10.1 % (2.0-8.0); NEUTROPHILS % 58.7 % (40.0-76.0); PLATELET 245 x1000/uL (130-400); RED BLOOD CELL COUNT 2.48 mill/uL (4.7-6.1)
[2019-05-28 06:37] LABS: PHOSPHORUS 3.6 mg/dL (2.5-4.9)
[2019-05-28] MEDS: SUCRALFATE 1 G/10 ML UDC PO SCH ×4 (06:38→20:37)
[2019-05-28] MEDS: HYDRALAZINE HCL 50MG TABLET PO SCH ×3 (06:38→20:38)
[2019-05-28 06:53] LABS: HEMATOCRIT. 20.6 % (42.0-52.0)
[2019-05-28] MEDS: BLOOD SUGAR DIAGNOSTIC STRIP TEST SCH ×4 (07:10→20:34)
[2019-05-28] MEDS: INSULIN LISPRO 100 UNITS/ML SUBCUT SCH ×4 (07:40→20:44)
[2019-05-28] MEDS: NIFEDIPINE XL 30MG TAB PO SCH ×2 (08:53→18:37)
[2019-05-28] MEDS: OMEPRAZOLE 20MG CAPSULE EXTENDED RELEASE PO SCH ×2 (08:53→18:51)
[2019-05-28] MEDS: FERROUS SULFATE 325MG TABLET PO SCH ×3 (08:53→18:36)
[2019-05-28] MEDS: FUROSEMIDE 100MG/10ML VIAL IVP SCH (08:54)
[2019-05-28 15:43] LABS: HEMATOCRIT 23.9 % (42.0-52.0); HEMOGLOBIN 8.2 g/dL (14.0-18.0); MEAN CORPUSCULAR HEMOGLOBIN 28.6 pg (28.0-32.0); MEAN CORPUSCULAR VOLUME 83.1 fL (80.0-94.0); PLATELET 279 x1000/uL (130-400); RED BLOOD CELL COUNT 2.88 mill/uL (4.7-6.1); RED CELL DISTRIBUTION WIDTH 16.9 % (11.6-14.6)
[2019-05-28] MEDS: EPOETIN ALFA 10000UNITS/ML VIAL SUBCUT SCH (20:38)
[2019-05-29 04:00] VITALS: BP 139/68
[2019-05-29] MEDS: BLOOD SUGAR DIAGNOSTIC STRIP TEST SCH ×4 (06:24→20:25)
[2019-05-29] MEDS: HYDRALAZINE HCL 50MG TABLET PO SCH ×3 (06:43→21:32)
[2019-05-29] MEDS: SUCRALFATE 1 G/10 ML UDC PO SCH ×4 (06:43→20:19)
[2019-05-29 08:00] VITALS: BP 157/88
[2019-05-29] MEDS: NIFEDIPINE XL 30MG TAB PO SCH ×2 (08:07→16:31)
[2019-05-29] MEDS: FERROUS SULFATE 325MG TABLET PO SCH ×3 (08:07→17:44)
[2019-05-29] MEDS: OMEPRAZOLE 20MG CAPSULE EXTENDED RELEASE PO SCH ×2 (08:08→16:30)
[2019-05-29] MEDS: FUROSEMIDE 100MG/10ML VIAL IVP SCH (08:08)
[2019-05-29] MEDS: INSULIN LISPRO 100 UNITS/ML SUBCUT SCH ×4 (08:09→20:24)
[2019-05-29 08:12] LABS: BASOPHILS % 0.4 % (0.0-2.0); EOSINOPHILS % 11.1 % (0.0-5.0); HEMATOCRIT. 21.7 % (42.0-52.0); HEMOGLOBIN. 7.3 g/dL (14.0-18.0); LYMPHOCYTES % 15.3 % (20.0-50.0); MEAN CORPUSCULAR HEMOGLOBIN 27.9 pg (28.0-32.0); MEAN CORPUSCULAR VOLUME 83.2 fL (80.0-94.0); MEAN PLATELET VOLUME 8.9 fl (7.4-10.4); MONOCYTES % 9.3 % (2.0-8.0); NEUTROPHILS % 63.9 % (40.0-76.0); PLATELET 286 x1000/uL (130-400); RED BLOOD CELL COUNT 2.61 mill/uL (4.7-6.1); RED CELL DISTRIBUTION WIDTH 16.7 % (11.6-14.6)
[2019-05-29 08:39] LABS: PHOSPHORUS 3.4 mg/dL (2.5-4.9)
[2019-05-29 12:00] VITALS: BP 150/70
[2019-05-29 16:00] VITALS: BP_SYST 101; BP_SYST 132; BP_DIAS 56; BP_DIAS 69
[2019-05-29 20:00] VITALS: BP 125/71
[2019-05-30] VITALS: BP 146/81
[2019-05-30 04:00] VITALS: BP 155/83
[2019-05-30] MEDS: SUCRALFATE 1 G/10 ML UDC PO SCH ×4 (06:12→21:10)
[2019-05-30] MEDS: HYDRALAZINE HCL 50MG TABLET PO SCH ×3 (06:12→22:15)
[2019-05-30] MEDS: BLOOD SUGAR DIAGNOSTIC STRIP TEST SCH ×4 (06:13→21:31)
[2019-05-30] MEDS: FERROUS SULFATE 325MG TABLET PO SCH ×2 (06:13→12:21)
[2019-05-30] MEDS: INSULIN LISPRO 100 UNITS/ML SUBCUT SCH ×4 (06:18→21:30)
[2019-05-30 08:00] VITALS: BP 143/77
[2019-05-30] MEDS: OMEPRAZOLE 20MG CAPSULE EXTENDED RELEASE PO SCH ×2 (08:10→17:49)
[2019-05-30] MEDS: NIFEDIPINE XL 30MG TAB PO SCH ×2 (08:11→17:49)
[2019-05-30] MEDS: FUROSEMIDE 100MG/10ML VIAL IVP SCH (08:11)
[2019-05-30 12:00] VITALS: BP 168/83
[2019-05-30] MEDS: HYDROCODONE/APAP 7.5/325MG 1 TAB TABLET PO PRN (12:24)
[2019-05-30 16:00] VITALS: BP 124/71
[2019-05-30] MEDS: METOCLOPRAMIDE HCL 5MG TABLET PO SCH ×2 (17:49→21:11)
[2019-05-30 20:00] VITALS: BP 158/83
[2019-05-30] MEDS: EPOETIN ALFA 10000UNITS/ML VIAL SUBCUT SCH (22:15)
[2019-05-31] VITALS: BP 122/74
[2019-05-31 04:00] VITALS: BP 153/81
[2019-05-31] MEDS: SUCRALFATE 1 G/10 ML UDC PO SCH ×4 (06:15→20:05)
[2019-05-31] MEDS: HYDRALAZINE HCL 50MG TABLET PO SCH ×3 (06:15→22:25)
[2019-05-31] MEDS: METOCLOPRAMIDE HCL 5MG TABLET PO SCH ×4 (06:16→20:05)
[2019-05-31] MEDS: BLOOD SUGAR DIAGNOSTIC STRIP TEST SCH ×4 (06:44→20:16)
[2019-05-31] MEDS: INSULIN LISPRO 100 UNITS/ML SUBCUT SCH ×4 (06:45→21:05)
[2019-05-31 07:13] LABS: BASOPHILS % 0.7 % (0.0-2.0); EOSINOPHILS % 10.3 % (0.0-5.0); LYMPHOCYTES % 15.6 % (20.0-50.0); MEAN CORPUSCULAR VOLUME 81.1 fL (80.0-94.0); MONOCYTES % 11.1 % (2.0-8.0); NEUTROPHILS % 62.3 % (40.0-76.0); PLATELET 266 x1000/uL (130-400); RED BLOOD CELL COUNT 2.43 mill/uL (4.7-6.1)
[2019-05-31 07:50] LABS: HEMOGLOBIN. 6.8 g/dL (14.0-18.0)
[2019-05-31 07:51] LABS: HEMATOCRIT. 19.7 % (42.0-52.0)
[2019-05-31 08:00] VITALS: BP 143/79
[2019-05-31 08:17] LABS: PHOSPHORUS 3.3 mg/dL (2.5-4.9)
[2019-05-31] MEDS: OMEPRAZOLE 20MG CAPSULE EXTENDED RELEASE PO SCH ×2 (09:01→16:34)
[2019-05-31] MEDS: NIFEDIPINE XL 30MG TAB PO SCH (09:01)
[2019-05-31] MEDS: FUROSEMIDE 40MG TABLET PO SCH (09:02)
[2019-05-31] MEDS ORDERED: SIMETHICONE 40 MG/0.6 ML 30ML ONE (11:35)
[2019-05-31] MEDS ORDERED: BACTERIOSTATIC SODIUM CHLORIDE 0.9% 30ML VIAL IJ ONE (11:35)
[2019-05-31 12:00] VITALS: BP 155/79
[2019-05-31] MEDS ORDERED: IRON SUCROSE COMPLEX 100 MG/5 ML ML IV SCH (13:00)
[2019-05-31 16:00] VITALS: BP 149/63
[2019-05-31] MEDS: NIFEDIPINE XL 60MG TAB PO SCH (16:34)
[2019-05-31 20:00] VITALS: BP 179/86
[2019-05-31] MEDS: CLONIDINE 0.1MG TABLET PO PRN (20:05)
[2019-05-31] MEDS: HYDRALAZINE 20MG/ML VIAL IV PRN (21:05)
[2019-05-31] MEDS: ALPRAZOLAM 0.5 MG TABLET PO PRN (21:13)
[2019-06-01] VITALS (13 sets, daily range): BP systolic 100–149; BP diastolic 66–82
[2019-06-01 06:16] LABS: BASOPHILS % 0.4 % (0.0-2.0); EOSINOPHILS % 8.4 % (0.0-5.0); LYMPHOCYTES % 13.4 % (20.0-50.0); MEAN CORPUSCULAR VOLUME 81.5 fL (80.0-94.0); MEAN PLATELET VOLUME 8.9 fl (7.4-10.4); MONOCYTES % 11.2 % (2.0-8.0); NEUTROPHILS % 66.6 % (40.0-76.0); PLATELET 292 x1000/uL (130-400); RED BLOOD CELL COUNT 2.33 mill/uL (4.7-6.1)
[2019-06-01] MEDS: SUCRALFATE 1 G/10 ML UDC PO SCH ×4 (06:21→21:11)
[2019-06-01 06:22] LABS: CHLORIDE 100 mEq/L (98-107)
[2019-06-01] MEDS: METOCLOPRAMIDE HCL 5MG TABLET PO SCH ×4 (06:22→21:10)
[2019-06-01] MEDS: HYDRALAZINE HCL 50MG TABLET PO SCH ×3 (06:22→21:10)
[2019-06-01] MEDS: BLOOD SUGAR DIAGNOSTIC STRIP TEST SCH ×4 (06:27→21:09)
[2019-06-01] MEDS: INSULIN LISPRO 100 UNITS/ML SUBCUT SCH ×4 (06:28→21:33)
[2019-06-01 06:33] LABS: PHOSPHORUS 3.9 mg/dL (2.5-4.9)
[2019-06-01 07:18] LABS: HEMOGLOBIN. 6.5 g/dL (14.0-18.0)
[2019-06-01] MEDS: OMEPRAZOLE 20MG CAPSULE EXTENDED RELEASE PO SCH ×2 (08:54→16:57)
[2019-06-01] MEDS: NIFEDIPINE XL 60MG TAB PO SCH ×2 (08:55→16:57)
[2019-06-01] MEDS: ALPRAZOLAM 0.5 MG TABLET PO PRN ×2 (08:59→21:10)
[2019-06-01] MEDS: FUROSEMIDE 40MG TABLET PO SCH (12:49)
[2019-06-01] MEDS ORDERED: INSULIN GLARGINE UD 100 UNITS/ML SYR SUBCUT SCH (22:00)
[2019-06-02] VITALS: BP 130/80
[2019-06-02 04:00] VITALS: BP 139/74
[2019-06-02 05:22] LABS: BASOPHILS % 0.5 % (0.0-2.0); EOSINOPHILS % 7.4 % (0.0-5.0); HEMOGLOBIN. 8.3 g/dL (14.0-18.0); LYMPHOCYTES % 14.5 % (20.0-50.0); MEAN CORPUSCULAR HEMOGLOBIN 28.4 pg (28.0-32.0); MEAN CORPUSCULAR VOLUME 81.8 fL (80.0-94.0); MEAN PLATELET VOLUME 8.9 fl (7.4-10.4); MONOCYTES % 12.3 % (2.0-8.0); NEUTROPHILS % 65.3 % (40.0-76.0); PLATELET 329 x1000/uL (130-400); RED BLOOD CELL COUNT 2.94 mill/uL (4.7-6.1); RED CELL DISTRIBUTION WIDTH 17.2 % (11.6-14.6)
[2019-06-02 05:28] LABS: PHOSPHORUS 3.6 mg/dL (2.5-4.9)
[2019-06-02] MEDS: INSULIN LISPRO 100 UNITS/ML SUBCUT SCH ×2 (06:26→12:58)
[2019-06-02] MEDS: BLOOD SUGAR DIAGNOSTIC STRIP TEST SCH ×2 (06:26→12:53)
[2019-06-02] MEDS: SUCRALFATE 1 G/10 ML UDC PO SCH ×2 (06:26→12:58)
[2019-06-02] MEDS: METOCLOPRAMIDE HCL 5MG TABLET PO SCH ×2 (06:27→12:58)
[2019-06-02] MEDS: HYDRALAZINE HCL 50MG TABLET PO SCH ×2 (06:27→14:00)
[2019-06-02 08:00] VITALS: BP 125/68
[2019-06-02] MEDS ORDERED: FOLIC ACID/VITAMIN B COMP W-C TABLET PO SCH (09:00)
[2019-06-02] MEDS: ALPRAZOLAM 0.5 MG TABLET PO PRN (09:06)
[2019-06-02] MEDS: OMEPRAZOLE 20MG CAPSULE EXTENDED RELEASE PO SCH ×2 (09:06→17:57)
[2019-06-02] MEDS: NIFEDIPINE XL 60MG TAB PO SCH ×2 (09:07→17:57)
[2019-06-02] MEDS: FUROSEMIDE 40MG TABLET PO SCH (09:07)
[2019-06-02 12:00] VITALS: BP 100/68
[2019-06-02 16:00] VITALS: BP 110/81
[2019-06-02] MEDS ORDERED: EPOETIN ALFA 4000UNITS/ML VIAL SUBCUT SCH (21:00)
[2019-06-02] MEDS ORDERED: EPOETIN ALFA 10000UNITS/ML VIAL SUBCUT SCH (21:00)
== END 2019-06-02 18:00 | disposition home health service (06) | DRG 242 ==
LOC: ER 20:19 → 6WST 05-20 01:34 → EDBEDREQ 05-20 01:47 → EDBEDREQTM 05-20 01:47 → EDBEDREQSVC 05-20 01:47 → EDBEDREQDT 05-20 01:47 → ENRESERV 05-20 12:36 → 8WST 05-26 16:35
PROVIDERS: ADMIT Internal Medicine; ATTEND Internal Medicine
PROC: 30233N1 Transfusion of Nonautologous Red Blood Cells into Peripheral Vein, Percutaneous Approach (ICD-10-PCS; 2019-05-20)
PROC: 0DB48ZX Excision of Esophagogastric Junction, Via Natural or Artificial Opening Endoscopic, Diagnostic (ICD-10-PCS; 2019-05-21)
PROC: 0DB78ZX Excision of Stomach, Pylorus, Via Natural or Artificial Opening Endoscopic, Diagnostic (ICD-10-PCS; 2019-05-21)
PROC: 5A1D70Z Performance of Urinary Filtration, Intermittent, Less than 6 Hours Per Day (ICD-10-PCS; principal; 2019-05-25)
PROC: 0JH63XZ Insertion of Tunneled Vascular Access Device into Chest Subcutaneous Tissue and Fascia, Percutaneous Approach (ICD-10-PCS; 2019-05-25)
PROC: 02H633Z Insertion of Infusion Device into Right Atrium, Percutaneous Approach (ICD-10-PCS; 2019-05-25)
PROC: B518ZZA Fluoroscopy of Superior Vena Cava, Guidance (ICD-10-PCS; 2019-05-25)
PROC: B548ZZA Ultrasonography of Superior Vena Cava, Guidance (ICD-10-PCS; 2019-05-25)
PROC: 5A1D70Z Performance of Urinary Filtration, Intermittent, Less than 6 Hours Per Day (ICD-10-PCS; 2019-05-27)
PROC: 5A1D70Z Performance of Urinary Filtration, Intermittent, Less than 6 Hours Per Day (ICD-10-PCS; 2019-05-29)
PROC: 5A1D70Z Performance of Urinary Filtration, Intermittent, Less than 6 Hours Per Day (ICD-10-PCS; 2019-06-01)
DX: K22.11 Ulcer of esophagus with bleeding (principal); N17.0 Acute kidney failure with tubular necrosis; E43 Unspecified severe protein-calorie malnutrition; K85.90 Acute pancreatitis without necrosis or infection, unspecified; D72.1 Eosinophilia; E11.22 Type 2 diabetes mellitus with diabetic chronic kidney disease; E87.2 Acidosis; I12.0 Hypertensive chronic kidney disease with stage 5 chronic kidney disease or end stage renal disease; N18.6 End stage renal disease; D63.1 Anemia in chronic kidney disease; D50.0 Iron deficiency anemia secondary to blood loss (chronic); N17.9 Acute kidney failure, unspecified; K44.9 Diaphragmatic hernia without obstruction or gangrene; Z87.19 Personal history of other diseases of the digestive system; Z87.11 Personal history of peptic ulcer disease; Z82.49 Family history of ischemic heart disease and other diseases of the circulatory system; Z83.3 Family history of diabetes mellitus; Z99.2 Dependence on renal dialysis; Z88.6 Allergy status to analgesic agent; Z79.899 Other long term (current) drug therapy; Z68.35 Body mass index [BMI] 35.0-35.9, adult
CPT/HCPCS: 36415; 36556; 36600; 71045; 76770; 76937; 77001; 80048; 80053; 81003; 82375; 82550; 82607; 82728; 82746; 82805; 82962; 83540; 83550; 83735; 84100; 84484; 85014; 85018; 85025; 85027; 85384; 86705; 86706; 86803; 86850; 86870; 86900; 86920; 87340; 88305; 88312; 88313; 90686; 96365; 99152; 99153; 99285; C1750; C1893; C9113; J0360; J0690; J0885; J1644; J1815; J1940; J2250; J3010; J3490; J7030; J7040; J8597; P9016; P9047; G0500

== ENCOUNTER 2019-06-04 02:33 | Emergency (ER) | payer MEDICAID ==
[~2019-06-04] VITALS: Ht 162.6 cm; Wt 86.0 kg
[~2019-06-04 02:33] MED LIST changes: +TAMS-11 PO
[2019-06-04] MEDS ORDERED: LORAZEPAM 0.5MG TABLET PO ONE (04:00)
[2019-06-04 05:29] VITALS: BP 177/70
== END 2019-06-04 05:33 | disposition home or self-care (01) ==
LOC: ER 02:33
DX: E83.51 Hypocalcemia (principal); R25.3 Fasciculation; T50.995A Adverse effect of other drugs, medicaments and biological substances, initial encounter; Y92.018 Other place in single-family (private) house as the place of occurrence of the external cause; I12.0 Hypertensive chronic kidney disease with stage 5 chronic kidney disease or end stage renal disease; E11.22 Type 2 diabetes mellitus with diabetic chronic kidney disease; N18.6 End stage renal disease; Z99.2 Dependence on renal dialysis
CPT/HCPCS: 36415; 80048; 99283

== ENCOUNTER 2019-08-22 13:39 | Inpatient (IN) | payer MEDICAID ==
[~2019-08-22] VITALS: Ht 162.6 cm; Wt 63.5 kg
[2019-08-22] MEDS ORDERED: SODIUM CHLORIDE 0.9% 250 ML IV ONE (16:37)
[2019-08-22 17:28] LABS: BASOPHILS % 0.5 % (0.0-2.0); EOSINOPHILS % 3.7 % (0.0-5.0); LYMPHOCYTES % 13.3 % (20.0-50.0); MEAN CORPUSCULAR HEMOGLOBIN 29.5 pg (28.0-32.0); MEAN CORPUSCULAR VOLUME 86.4 fL (80.0-94.0); MEAN PLATELET VOLUME 8.4 fl (7.4-10.4); MONOCYTES % 8.4 % (2.0-8.0); NEUTROPHILS % 74.1 % (40.0-76.0); PLATELET 414 x1000/uL (130-400); RED BLOOD CELL COUNT 2.39 mill/uL (4.7-6.1)
[2019-08-22 17:33] LABS: HEMATOCRIT. 20.6 % (42.0-52.0)
[2019-08-22 17:34] LABS: CHLORIDE 101 mEq/L (98-107)
[2019-08-22 17:36] LABS: PARTIAL THROMBOPLASTIN TIME 27.1 sec (23.4-31.0); PROTHROMBIN TIME 10.6 sec (9.6-11.0)
[2019-08-22 17:39] LABS: ETHANOL BLOOD < 10 mg/dL
[2019-08-22 19:23] LABS: TOTAL IRON BINDING CAPACITY 275 ug/dL (250-450)
[2019-08-23] VITALS (8 sets, daily range): BP systolic 141–178; BP diastolic 64–92
[2019-08-23] MEDS ORDERED: METF-816 MT (02:06)
[2019-08-23] MEDS ORDERED: DEXTROSE 50% WATER 50ML SYRINGE IV PRN (03:00)
[2019-08-23] MEDS ORDERED: ACETAMINOPHEN 325MG TABLET PO PRN (03:00)
[2019-08-23] MEDS ORDERED: CLONIDINE 0.1MG TABLET PO PRN (03:00)
[2019-08-23] MEDS: BLOOD SUGAR DIAGNOSTIC STRIP TEST SCH ×4 (06:48→22:21)
[2019-08-23 07:08] LABS: PHOSPHORUS 4.2 mg/dL (2.5-4.9)
[2019-08-23 07:18] LABS: BASOPHILS % 0.5 % (0.0-2.0); EOSINOPHILS % 5.1 % (0.0-5.0); MEAN CORPUSCULAR HEMOGLOBIN 28.4 pg (28.0-32.0); MEAN CORPUSCULAR VOLUME 86.3 fL (80.0-94.0); MEAN PLATELET VOLUME 8.3 fl (7.4-10.4); MONOCYTES % 12.6 % (2.0-8.0); NEUTROPHILS % 63.8 % (40.0-76.0); PLATELET 343 x1000/uL (130-400); RED BLOOD CELL COUNT 2.06 mill/uL (4.7-6.1); RED CELL DISTRIBUTION WIDTH 19.9 % (11.6-14.6)
[2019-08-23 07:37] LABS: HEMOGLOBIN. 5.9 g/dL (14.0-18.0)
[2019-08-23 07:38] LABS: HEMATOCRIT. 17.8 % (42.0-52.0)
[2019-08-23] MEDS: INSULIN LISPRO 100 UNITS/ML SUBCUT SCH ×4 (07:50→21:00)
[2019-08-23] MEDS: SEVELAMER CARBONATE 800 MG TABLET PO SCH ×3 (07:50→18:04)
[2019-08-23] MEDS: FOLIC ACID/VITAMIN B COMP W-C TABLET PO SCH (09:37)
[2019-08-23] MEDS: AMLODIPINE 10MG TABLET PO SCH (09:37)
[2019-08-23] MEDS: PANTOPRAZOLE SODIUM 40 MG/VIAL IV SCH ×2 (13:00→22:20)
[2019-08-23] MEDS: FERROUS SULFATE 325MG TABLET PO SCH ×2 (13:32→18:04)
[2019-08-23] MEDS: SUCRALFATE 1 G/10 ML UDC PO SCH ×2 (18:04→22:20)
[2019-08-23] MEDS: METOCLOPRAMIDE HCL 10MG TABLET PO SCH (18:08)
[2019-08-24 00:36] VITALS: BP 157/81
[2019-08-24 01:36] VITALS: BP 155/86
[2019-08-24 02:34] VITALS: BP 154/84
[2019-08-24] MEDS: METOCLOPRAMIDE HCL 10MG TABLET PO SCH ×3 (04:54→12:47)
[2019-08-24] MEDS: SUCRALFATE 1 G/10 ML UDC PO SCH ×2 (06:33→12:47)
[2019-08-24 06:56] LABS: BASOPHILS % 0.5 % (0.0-2.0); EOSINOPHILS % 5.3 % (0.0-5.0); HEMATOCRIT. 26.6 % (42.0-52.0); HEMOGLOBIN. 9.1 g/dL (14.0-18.0); LYMPHOCYTES % 19.8 % (20.0-50.0); MEAN CORPUSCULAR HEMOGLOBIN 29.4 pg (28.0-32.0); MEAN CORPUSCULAR VOLUME 85.7 fL (80.0-94.0); MEAN PLATELET VOLUME 8.6 fl (7.4-10.4); MONOCYTES % 11.7 % (2.0-8.0); NEUTROPHILS % 62.7 % (40.0-76.0); PLATELET 307 x1000/uL (130-400); RED CELL DISTRIBUTION WIDTH 17.1 % (11.6-14.6)
[2019-08-24] MEDS: BLOOD SUGAR DIAGNOSTIC STRIP TEST SCH ×2 (07:49→12:49)
[2019-08-24] MEDS: INSULIN LISPRO 100 UNITS/ML SUBCUT SCH ×2 (07:49→12:49)
[2019-08-24] MEDS: PANTOPRAZOLE SODIUM 40 MG/VIAL IV SCH (08:54)
[2019-08-24] MEDS: AMLODIPINE 10MG TABLET PO SCH (08:54)
[2019-08-24] MEDS: SEVELAMER CARBONATE 800 MG TABLET PO SCH ×2 (08:54→12:47)
[2019-08-24] MEDS: FERROUS SULFATE 325MG TABLET PO SCH ×2 (08:55→12:47)
[2019-08-24] MEDS: FOLIC ACID/VITAMIN B COMP W-C TABLET PO SCH (08:55)
[2019-08-24] MEDS ORDERED: LISINOPRIL 40MG TABLET PO SCH (12:00)
[2019-08-24] MEDS ORDERED: SUCR1TAB30 PO (13:21)
[2019-08-24] MEDS ORDERED: PANT40TA4 MT (13:21)
[2019-08-24 15:32] VITALS: BP 144/75
[2019-08-24] MEDS ORDERED: EPOETIN ALFA 10000UNITS/ML VIAL SUBCUT SCH (21:00)
== END 2019-08-24 17:00 | disposition home or self-care (01) | DRG 133 ==
LOC: ER 13:39 → 6WST 19:14 → EDBEDREQTM 19:16 → EDBEDREQ 19:16 → ENRESERV 21:48
PROVIDERS: ADMIT Internal Medicine; ATTEND Internal Medicine
PROC: 30233N1 Transfusion of Nonautologous Red Blood Cells into Peripheral Vein, Percutaneous Approach (ICD-10-PCS; principal; 2019-08-23)
PROC: 5A1D70Z Performance of Urinary Filtration, Intermittent, Less than 6 Hours Per Day (ICD-10-PCS; 2019-08-23)
PROC: 5A1D70Z Performance of Urinary Filtration, Intermittent, Less than 6 Hours Per Day (ICD-10-PCS; 2019-08-24)
DX: J96.00 Acute respiratory failure, unspecified whether with hypoxia or hypercapnia (principal); I13.2 Hypertensive heart and chronic kidney disease with heart failure and with stage 5 chronic kidney disease, or end stage renal disease; E43 Unspecified severe protein-calorie malnutrition; N17.9 Acute kidney failure, unspecified; E11.22 Type 2 diabetes mellitus with diabetic chronic kidney disease; E11.319 Type 2 diabetes mellitus with unspecified diabetic retinopathy without macular edema; F15.10 Other stimulant abuse, uncomplicated; D50.9 Iron deficiency anemia, unspecified; N18.6 End stage renal disease; K22.10 Ulcer of esophagus without bleeding; E78.5 Hyperlipidemia, unspecified; K44.9 Diaphragmatic hernia without obstruction or gangrene; I50.9 Heart failure, unspecified; F32.9 Major depressive disorder, single episode, unspecified; Z99.2 Dependence on renal dialysis; Z87.19 Personal history of other diseases of the digestive system; Z88.6 Allergy status to analgesic agent; Z82.49 Family history of ischemic heart disease and other diseases of the circulatory system; Z88.8 Allergy status to other drugs, medicaments and biological substances; Z79.84 Long term (current) use of oral hypoglycemic drugs; Z79.899 Other long term (current) drug therapy
CPT/HCPCS: 36415; 71045; 80048; 80053; 80320; 82728; 82962; 83036; 83540; 83550; 83735; 83880; 84100; 84484; 85025; 86850; 86870; 86900; 86920; 93005; 99285; C9113; J1815; J7050; J8597; P9016; G0480

== ENCOUNTER 2019-09-23 12:56 | Inpatient (IN) | payer MEDICAID ==
[~2019-09-23] VITALS: Ht 162.6 cm; Wt 80.3 kg
[~2019-09-23 12:56] MED LIST changes: -AZIT500T8 PO; +METF-816 MT
[2019-09-23 14:19] LABS: BASOPHILS % 0.5 % (0.0-2.0); EOSINOPHILS % 3.3 % (0.0-5.0); MEAN CORPUSCULAR HEMOGLOBIN 29.6 pg (28.0-32.0); MONOCYTES % 10.1 % (2.0-8.0); NEUTROPHILS % 77.1 % (40.0-76.0); PLATELET 353 x1000/uL (130-400); RED BLOOD CELL COUNT 2.15 mill/uL (4.7-6.1); RED CELL DISTRIBUTION WIDTH 17.2 % (11.6-14.6)
[2019-09-23 14:22] LABS: CHLORIDE 96 mEq/L (98-107)
[2019-09-23 14:31] LABS: HEMATOCRIT. 19.4 % (42.0-52.0); HEMOGLOBIN. 6.4 g/dL (14.0-18.0)
[2019-09-23] MEDS ORDERED: INSULIN REGULAR (HUMULIN R) 300UNITS/3ML SUBCUT ONE (15:15)
[2019-09-23 15:31] LABS: PARTIAL THROMBOPLASTIN TIME 26.1 sec (23.4-31.0); PROTHROMBIN TIME 10.8 sec (9.6-11.0)
[2019-09-23] MEDS ORDERED: ONDANSETRON HCL 4MG/2ML INJ IV STA (17:59)
[2019-09-23] MEDS ORDERED: MORPHINE SULFATE 4 MG/ML CPJ (NOT FOR IM USE) IV STA (17:59)
[2019-09-24] MEDS ORDERED: DEXTROSE 50% WATER 50ML SYRINGE IV PRN (12:00)
[2019-09-24] MEDS ORDERED: ONDANSETRON HCL 4MG/2ML INJ IV PRN (12:00)
[2019-09-24] MEDS ORDERED: ACETAMINOPHEN 325MG TABLET PO PRN (12:00)
[2019-09-24] MEDS: BLOOD SUGAR DIAGNOSTIC STRIP TEST SCH ×3 (14:30→21:00)
[2019-09-24] MEDS: INSULIN LISPRO 100 UNITS/ML SUBCUT SCH ×3 (15:05→21:00)
[2019-09-24 15:09] LABS: BASOPHILS % 0.5 % (0.0-2.0); EOSINOPHILS % 4.2 % (0.0-5.0); HEMATOCRIT. 24.3 % (42.0-52.0); HEMOGLOBIN. 8.3 g/dL (14.0-18.0); LYMPHOCYTES % 7.6 % (20.0-50.0); MEAN CORPUSCULAR HEMOGLOBIN 30.7 pg (28.0-32.0); MEAN CORPUSCULAR VOLUME 89.5 fL (80.0-94.0); MEAN PLATELET VOLUME 8.5 fl (7.4-10.4); MONOCYTES % 6.5 % (2.0-8.0); NEUTROPHILS % 81.2 % (40.0-76.0); PLATELET 388 x1000/uL (130-400); RED BLOOD CELL COUNT 2.71 mill/uL (4.7-6.1)
[2019-09-24] MEDS: HYDROCODONE/ACETAMINOPHEN 10/325MG TABLET PO PRN (18:28)
[2019-09-24 21:55] VITALS: BP 179/84
[2019-09-24] MEDS ORDERED: INSULIN GLARGINE UD 100 UNITS/ML SYR SUBCUT SCH (22:00)
[2019-09-24 22:20] VITALS: BP 172/98
[2019-09-24] MEDS: ATORVASTATIN CALCIUM 20MG TABLET PO SCH (22:43)
[2019-09-24] MEDS: PANTOPRAZOLE SODIUM 40 MG/VIAL IV SCH (22:43)
[2019-09-24] MEDS: AMLODIPINE 5MG TABLET PO SCH (22:44)
[2019-09-25] VITALS (16 sets, daily range): BP systolic 122–174; BP diastolic 61–94
[2019-09-25] MEDS: EPOETIN ALFA 10000UNITS/ML VIAL SUBCUT SCH (00:22)
[2019-09-25] MEDS: INSULIN GLARGINE UD 100 UNITS/ML SYR SUBCUT SCH ×3 (00:24→22:52)
[2019-09-25] MEDS: HYDROCODONE/ACETAMINOPHEN 10/325MG TABLET PO PRN ×2 (00:31→10:29)
[2019-09-25 04:28] LABS: BASOPHILS % 0.7 % (0.0-2.0); EOSINOPHILS % 4.3 % (0.0-5.0); LYMPHOCYTES % 9.5 % (20.0-50.0); MEAN CORPUSCULAR HEMOGLOBIN 29.7 pg (28.0-32.0); MEAN CORPUSCULAR VOLUME 88.9 fL (80.0-94.0); MEAN PLATELET VOLUME 8.6 fl (7.4-10.4); MONOCYTES % 7.7 % (2.0-8.0); NEUTROPHILS % 77.8 % (40.0-76.0); PLATELET 323 x1000/uL (130-400); RED BLOOD CELL COUNT 1.98 mill/uL (4.7-6.1); RED CELL DISTRIBUTION WIDTH 17.1 % (11.6-14.6)
[2019-09-25 04:32] LABS: HEMATOCRIT. 17.6 % (42.0-52.0); HEMOGLOBIN. 5.9 g/dL (14.0-18.0)
[2019-09-25 04:41] LABS: PHOSPHORUS 6.7 mg/dL (2.5-4.9)
[2019-09-25 04:50] LABS: FERRITIN 367 ng/mL (22-322)
[2019-09-25 06:05] LABS: VITAMIN B12 SERUM 664 pg/mL (211-911)
[2019-09-25] MEDS: BLOOD SUGAR DIAGNOSTIC STRIP TEST SCH ×4 (08:04→21:13)
[2019-09-25] MEDS: AMLODIPINE 5MG TABLET PO SCH ×2 (08:07→21:13)
[2019-09-25] MEDS: INSULIN LISPRO 100 UNITS/ML SUBCUT SCH ×4 (08:07→21:14)
[2019-09-25] MEDS: PANTOPRAZOLE SODIUM 40 MG/VIAL IV SCH ×2 (08:09→21:13)
[2019-09-25] MEDS: ATORVASTATIN CALCIUM 20MG TABLET PO SCH (21:13)
[2019-09-26] VITALS: BP 133/64
[2019-09-26 00:31] LABS: HEMATOCRIT 21.3 % (42.0-52.0)
[2019-09-26 04:30] VITALS: BP 153/78
[2019-09-26] MEDS: BLOOD SUGAR DIAGNOSTIC STRIP TEST SCH ×4 (06:21→21:09)
[2019-09-26 07:47] LABS: BASOPHILS % 0.6 % (0.0-2.0); EOSINOPHILS % 4.4 % (0.0-5.0); HEMATOCRIT. 24.3 % (42.0-52.0); HEMOGLOBIN. 8.1 g/dL (14.0-18.0); LYMPHOCYTES % 9.5 % (20.0-50.0); MEAN CORPUSCULAR HEMOGLOBIN 29.1 pg (28.0-32.0); MEAN CORPUSCULAR VOLUME 87.6 fL (80.0-94.0); MEAN PLATELET VOLUME 8.7 fl (7.4-10.4); MONOCYTES % 9.4 % (2.0-8.0); NEUTROPHILS % 76.1 % (40.0-76.0); PLATELET 313 x1000/uL (130-400); RED BLOOD CELL COUNT 2.78 mill/uL (4.7-6.1); RED CELL DISTRIBUTION WIDTH 17.8 % (11.6-14.6)
[2019-09-26] MEDS: INSULIN LISPRO 100 UNITS/ML SUBCUT SCH ×4 (07:50→21:00)
[2019-09-26 07:59] LABS: PHOSPHORUS 5.2 mg/dL (2.5-4.9)
[2019-09-26 08:00] VITALS: BP 156/81
[2019-09-26] MEDS: PANTOPRAZOLE SODIUM 40 MG/VIAL IV SCH ×2 (08:51→21:06)
[2019-09-26] MEDS: AMLODIPINE 5MG TABLET PO SCH ×2 (08:52→21:08)
[2019-09-26] MEDS ORDERED: INSULIN GLARGINE UD 100 UNITS/ML SYR SUBCUT SCH (10:00)
[2019-09-26 12:00] VITALS: BP 177/93
[2019-09-26 14:09] LABS: FOLATE RBC 2206 ng/mL (>498)
[2019-09-26 16:00] VITALS: BP 166/77
[2019-09-26 16:24] LABS: HEMATOCRIT 23.9 % (42.0-52.0); HEMOGLOBIN 8.1 g/dL (14.0-18.0)
[2019-09-26 20:00] VITALS: BP 157/73
[2019-09-26] MEDS: ATORVASTATIN CALCIUM 20MG TABLET PO SCH (21:07)
[2019-09-26] MEDS: HYDROCODONE/ACETAMINOPHEN 10/325MG TABLET PO PRN (21:07)
[2019-09-26] MEDS: EPOETIN ALFA 10000UNITS/ML VIAL SUBCUT SCH (21:08)
[2019-09-27] VITALS (7 sets, daily range): BP systolic 136–175; BP diastolic 73–90
[2019-09-27 00:24] LABS: HEMATOCRIT 21.8 % (42.0-52.0); HEMOGLOBIN 7.5 g/dL (14.0-18.0)
[2019-09-27 06:10] LABS: BASOPHILS % 0.6 % (0.0-2.0); HEMATOCRIT. 23.2 % (42.0-52.0); HEMOGLOBIN. 7.8 g/dL (14.0-18.0); LYMPHOCYTES % 13.4 % (20.0-50.0); MEAN CORPUSCULAR HEMOGLOBIN 29.4 pg (28.0-32.0); MEAN CORPUSCULAR VOLUME 87.2 fL (80.0-94.0); MEAN PLATELET VOLUME 8.6 fl (7.4-10.4); MONOCYTES % 9.5 % (2.0-8.0); NEUTROPHILS % 71.5 % (40.0-76.0); PLATELET 296 x1000/uL (130-400); RED BLOOD CELL COUNT 2.66 mill/uL (4.7-6.1); RED CELL DISTRIBUTION WIDTH 18.2 % (11.6-14.6)
[2019-09-27] MEDS: BLOOD SUGAR DIAGNOSTIC STRIP TEST SCH ×4 (06:59→20:49)
[2019-09-27 07:07] LABS: PHOSPHORUS 4.6 mg/dL (2.5-4.9)
[2019-09-27] MEDS: INSULIN LISPRO 100 UNITS/ML SUBCUT SCH ×4 (07:50→20:49)
[2019-09-27] MEDS: AMLODIPINE 5MG TABLET PO SCH ×2 (08:51→20:49)
[2019-09-27] MEDS: PANTOPRAZOLE SODIUM 40 MG/VIAL IV SCH ×2 (08:51→21:27)
[2019-09-27] MEDS: CLONIDINE 0.1MG TABLET PO PRN ×2 (08:56→16:23)
[2019-09-27] MEDS: LOSARTAN POTASSIUM 100 MG TABLET PO SCH (14:06)
[2019-09-27] MEDS: HYDROCODONE/ACETAMINOPHEN 10/325MG TABLET PO PRN (14:10)
[2019-09-27] MEDS: ATORVASTATIN CALCIUM 20MG TABLET PO SCH (20:48)
[2019-09-28] VITALS: BP 145/71
[2019-09-28 04:00] VITALS: BP 157/77
[2019-09-28] MEDS: BLOOD SUGAR DIAGNOSTIC STRIP TEST SCH ×4 (06:20→20:54)
[2019-09-28 06:43] LABS: BASOPHILS % 0.5 % (0.0-2.0); EOSINOPHILS % 5.8 % (0.0-5.0); HEMATOCRIT. 22.4 % (42.0-52.0); HEMOGLOBIN. 7.4 g/dL (14.0-18.0); LYMPHOCYTES % 10.3 % (20.0-50.0); MEAN CORPUSCULAR HEMOGLOBIN 29.2 pg (28.0-32.0); MEAN CORPUSCULAR VOLUME 88.8 fL (80.0-94.0); MEAN PLATELET VOLUME 8.8 fl (7.4-10.4); MONOCYTES % 8.4 % (2.0-8.0); PLATELET 294 x1000/uL (130-400); RED BLOOD CELL COUNT 2.52 mill/uL (4.7-6.1); RED CELL DISTRIBUTION WIDTH 17.8 % (11.6-14.6)
[2019-09-28] MEDS: INSULIN LISPRO 100 UNITS/ML SUBCUT SCH ×4 (07:50→21:10)
[2019-09-28 08:00] VITALS: BP 161/91
[2019-09-28] MEDS: AMLODIPINE 5MG TABLET PO SCH ×2 (08:40→21:00)
[2019-09-28] MEDS: LOSARTAN POTASSIUM 100 MG TABLET PO SCH (08:40)
[2019-09-28] MEDS: PANTOPRAZOLE SODIUM 40 MG/VIAL IV SCH ×2 (08:43→21:46)
[2019-09-28 09:05] LABS: PHOSPHORUS 5.8 mg/dL (2.5-4.9)
[2019-09-28] MEDS ORDERED: MIDAZOLAM HCL 5 MG/5 ML VIAL ONE (11:56)
[2019-09-28] MEDS ORDERED: FENTANYL CITRATE/PF 50MCG/ML 2ML VIAL ONE (11:56)
[2019-09-28 12:00] VITALS: BP 143/71
[2019-09-28] MEDS ORDERED: SODIUM POLYSTYRENE SULFONATE 15 G/60 ML BOT PR NR (15:00)
[2019-09-28 16:00] VITALS: BP 149/77
[2019-09-28 20:00] VITALS: BP 149/57
[2019-09-28] MEDS: ATORVASTATIN CALCIUM 20MG TABLET PO SCH (21:08)
[2019-09-29] VITALS (7 sets, daily range): BP systolic 130–194; BP diastolic 66–102
[2019-09-29] MEDS: BLOOD SUGAR DIAGNOSTIC STRIP TEST SCH ×4 (06:00→21:25)
[2019-09-29] MEDS: INSULIN LISPRO 100 UNITS/ML SUBCUT SCH ×4 (06:21→21:49)
[2019-09-29] MEDS: LOSARTAN POTASSIUM 100 MG TABLET PO SCH (08:32)
[2019-09-29] MEDS: AMLODIPINE 5MG TABLET PO SCH (08:33)
[2019-09-29 09:45] LABS: BASOPHILS % 0.6 % (0.0-2.0); EOSINOPHILS % 5.1 % (0.0-5.0); HEMATOCRIT. 30.5 % (42.0-52.0); HEMOGLOBIN. 10.4 g/dL (14.0-18.0); LYMPHOCYTES % 7.6 % (20.0-50.0); MEAN CORPUSCULAR HEMOGLOBIN 29.6 pg (28.0-32.0); MEAN CORPUSCULAR VOLUME 86.8 fL (80.0-94.0); MEAN PLATELET VOLUME 8.2 fl (7.4-10.4); MONOCYTES % 8.6 % (2.0-8.0); NEUTROPHILS % 78.1 % (40.0-76.0); PLATELET 334 x1000/uL (130-400); RED BLOOD CELL COUNT 3.51 mill/uL (4.7-6.1); RED CELL DISTRIBUTION WIDTH 16.5 % (11.6-14.6)
[2019-09-29 10:01] LABS: PHOSPHORUS 5.2 mg/dL (2.5-4.9)
[2019-09-29] MEDS: PANTOPRAZOLE SODIUM 40 MG/VIAL IV SCH ×2 (10:07→21:25)
[2019-09-29] MEDS: NIFEDIPINE XL 60MG TAB PO SCH ×2 (11:04→21:25)
[2019-09-29] MEDS: FUROSEMIDE 100MG/10ML VIAL IVP SCH (11:15)
[2019-09-29] MEDS ORDERED: SODIUM POLYSTYRENE SULFONATE 15 G/60 ML BOT PR SCH (12:00)
[2019-09-29] MEDS ORDERED: FENTANYL CITRATE/PF 50MCG/ML 2ML VIAL ONE ×2 (12:42→13:22)
[2019-09-29] MEDS ORDERED: MIDAZOLAM HCL 5 MG/5 ML VIAL ONE (12:42)
[2019-09-29] MEDS ORDERED: MIDAZOLAM HCL 5 MG/5 ML VIAL IV ONE (13:11)
[2019-09-29] MEDS ORDERED: FENTANYL CITRATE/PF 50MCG/ML 2ML VIAL IV ONE (13:12)
[2019-09-29] MEDS ORDERED: SIMETHICONE 40 MG/0.6 ML 30ML ONE (13:40)
[2019-09-29] MEDS: IPRATROPIUM/ALBUTEROL 0.5-3(2.5)MG/3ML NEB HHN SCH ×2 (15:14→20:25)
[2019-09-29] MEDS: HYDRALAZINE HCL 25MG TABLET PO SCH ×2 (17:19→21:54)
[2019-09-29] MEDS: ATORVASTATIN CALCIUM 20MG TABLET PO SCH (21:24)
[2019-09-30] VITALS: BP 135/61
[2019-09-30] MEDS: IPRATROPIUM/ALBUTEROL 0.5-3(2.5)MG/3ML NEB HHN SCH ×7 (00:19→21:35)
[2019-09-30] MEDS: BLOOD SUGAR DIAGNOSTIC STRIP TEST SCH ×4 (06:23→20:29)
[2019-09-30] MEDS: HYDRALAZINE HCL 25MG TABLET PO SCH ×3 (06:32→22:00)
[2019-09-30 06:56] LABS: BASOPHILS % 0.4 % (0.0-2.0); EOSINOPHILS % 4.5 % (0.0-5.0); HEMATOCRIT. 26.9 % (42.0-52.0); HEMOGLOBIN. 9.2 g/dL (14.0-18.0); LYMPHOCYTES % 8.7 % (20.0-50.0); MEAN CORPUSCULAR HEMOGLOBIN 29.9 pg (28.0-32.0); MEAN CORPUSCULAR VOLUME 87.2 fL (80.0-94.0); MEAN PLATELET VOLUME 8.4 fl (7.4-10.4); MONOCYTES % 11.4 % (2.0-8.0); PLATELET 282 x1000/uL (130-400); RED BLOOD CELL COUNT 3.08 mill/uL (4.7-6.1); RED CELL DISTRIBUTION WIDTH 16.6 % (11.6-14.6)
[2019-09-30 07:17] LABS: PHOSPHORUS 7.1 mg/dL (2.5-4.9)
[2019-09-30] MEDS: INSULIN LISPRO 100 UNITS/ML SUBCUT SCH ×4 (07:50→20:29)
[2019-09-30 08:00] VITALS: BP 139/65
[2019-09-30] MEDS: NIFEDIPINE XL 60MG TAB PO SCH ×2 (09:51→20:29)
[2019-09-30] MEDS: PANTOPRAZOLE SODIUM 40 MG/VIAL IV SCH ×2 (10:02→20:28)
[2019-09-30] MEDS: FUROSEMIDE 100MG/10ML VIAL IVP SCH (10:37)
[2019-09-30 12:00] VITALS: BP 141/62
[2019-09-30] MEDS ORDERED: ATOR20TA PO (12:54)
[2019-09-30] MEDS ORDERED: PROT40 MT (12:54)
[2019-09-30] MEDS ORDERED: NIFE-32 PO (12:54)
[2019-09-30] MEDS ORDERED: GLIP5TAB12 MT (12:54)
[2019-09-30] MEDS ORDERED: HYDR-4135 MT (12:54)
[2019-09-30 16:00] VITALS: BP 131/60
[2019-09-30 20:00] VITALS: BP 111/56
[2019-09-30] MEDS: ATORVASTATIN CALCIUM 20MG TABLET PO SCH (20:29)
[2019-09-30 21:31] VITALS: BP_SYST 111; BP_SYST 145; BP_DIAS 56; BP_DIAS 71
[2019-10-01] VITALS: BP 136/60
[2019-10-01] MEDS: IPRATROPIUM/ALBUTEROL 0.5-3(2.5)MG/3ML NEB HHN SCH ×3 (00:19→08:28)
[2019-10-01 04:00] VITALS: BP 132/59
[2019-10-01] MEDS: HYDRALAZINE HCL 25MG TABLET PO SCH (06:03)
[2019-10-01 06:45] LABS: BASOPHILS % 0.4 % (0.0-2.0); HEMATOCRIT. 26.7 % (42.0-52.0); LYMPHOCYTES % 11.2 % (20.0-50.0); MEAN CORPUSCULAR HEMOGLOBIN 29.3 pg (28.0-32.0); MEAN CORPUSCULAR VOLUME 86.8 fL (80.0-94.0); MEAN PLATELET VOLUME 8.4 fl (7.4-10.4); MONOCYTES % 10.9 % (2.0-8.0); NEUTROPHILS % 73.5 % (40.0-76.0); PLATELET 275 x1000/uL (130-400); RED BLOOD CELL COUNT 3.07 mill/uL (4.7-6.1); RED CELL DISTRIBUTION WIDTH 17.1 % (11.6-14.6)
[2019-10-01] MEDS: BLOOD SUGAR DIAGNOSTIC STRIP TEST SCH (06:49)
[2019-10-01] MEDS: INSULIN LISPRO 100 UNITS/ML SUBCUT SCH (06:59)
[2019-10-01 07:46] LABS: PHOSPHORUS 5.5 mg/dL (2.5-4.9)
[2019-10-01 08:00] VITALS: BP 145/71
[2019-10-01] MEDS ORDERED: INSULIN GLARGINE UD 100 UNITS/ML SYR SUBCUT ONE (09:30)
[2019-10-01] MEDS: NIFEDIPINE XL 60MG TAB PO SCH (09:43)
[2019-10-01] MEDS: FUROSEMIDE 100MG/10ML VIAL IVP SCH (09:44)
[2019-10-01] MEDS: PANTOPRAZOLE SODIUM 40 MG/VIAL IV SCH (09:44)
[2019-10-01] MEDS ORDERED: INSULIN GLARGINE UD 100 UNITS/ML SYR SUBCUT SCH (11:00)
== END 2019-10-01 11:15 | disposition home or self-care (01) | DRG 241 ==
LOC: ER 12:56 → EDBEDREQ 18:49 → EDBEDREQTM 18:49 → CANRESERV 22:26 → ENRESERV 22:26 → 7WST 09-24 18:40 → EDBEDREQ 09-24 19:31 → ENRESERV 09-24 20:21 → 6WST 09-26 01:08
PROVIDERS: ADMIT Internal Medicine; ATTEND Internal Medicine
PROC: 30233N1 Transfusion of Nonautologous Red Blood Cells into Peripheral Vein, Percutaneous Approach (ICD-10-PCS; principal; 2019-09-24)
PROC: 5A1D70Z Performance of Urinary Filtration, Intermittent, Less than 6 Hours Per Day (ICD-10-PCS; 2019-09-24)
PROC: 5A1D70Z Performance of Urinary Filtration, Intermittent, Less than 6 Hours Per Day (ICD-10-PCS; 2019-09-25)
PROC: 5A1D70Z Performance of Urinary Filtration, Intermittent, Less than 6 Hours Per Day (ICD-10-PCS; 2019-09-28)
PROC: 0DB68ZX Excision of Stomach, Via Natural or Artificial Opening Endoscopic, Diagnostic (ICD-10-PCS; 2019-09-29)
PROC: 5A1D70Z Performance of Urinary Filtration, Intermittent, Less than 6 Hours Per Day (ICD-10-PCS; 2019-09-29)
PROC: 5A1D70Z Performance of Urinary Filtration, Intermittent, Less than 6 Hours Per Day (ICD-10-PCS; 2019-10-01)
DX: K29.71 Gastritis, unspecified, with bleeding (principal); I13.2 Hypertensive heart and chronic kidney disease with heart failure and with stage 5 chronic kidney disease, or end stage renal disease; E44.0 Moderate protein-calorie malnutrition; E11.22 Type 2 diabetes mellitus with diabetic chronic kidney disease; E87.8 Other disorders of electrolyte and fluid balance, not elsewhere classified; E11.65 Type 2 diabetes mellitus with hyperglycemia; E87.1 Hypo-osmolality and hyponatremia; N18.6 End stage renal disease; E78.5 Hyperlipidemia, unspecified; K44.9 Diaphragmatic hernia without obstruction or gangrene; M51.36 Other intervertebral disc degeneration, lumbar region; F32.9 Major depressive disorder, single episode, unspecified; I50.9 Heart failure, unspecified; M47.817 Spondylosis without myelopathy or radiculopathy, lumbosacral region; M43.17 Spondylolisthesis, lumbosacral region; K22.70 Barrett's esophagus without dysplasia; M51.37 Other intervertebral disc degeneration, lumbosacral region; Z82.49 Family history of ischemic heart disease and other diseases of the circulatory system; Z87.11 Personal history of peptic ulcer disease; Z83.3 Family history of diabetes mellitus; Z99.2 Dependence on renal dialysis; Z03.818 Encounter for observation for suspected exposure to other biological agents ruled out; Z68.30 Body mass index [BMI] 30.0-30.9, adult; Z88.8 Allergy status to other drugs, medicaments and biological substances; Z79.899 Other long term (current) drug therapy; Z79.84 Long term (current) use of oral hypoglycemic drugs; D63.8 Anemia in other chronic diseases classified elsewhere
CPT/HCPCS: 36415; 71045; 72131; 80048; 80053; 82270; 82607; 82728; 82747; 82962; 83540; 83550; 83735; 84100; 85014; 85018; 85025; 86850; 86870; 86900; 86920; 87635; 88305; 88312; 88313; 93005; 96372; 96374; 96375; 99285; C9113; J0885; J1815; J1940; J2250; J2270; J2405; J3010; P9016; C9803-CS; U0003-CS